=== PATIENT | male | born 1995 | race African-American/Black ===

== ENCOUNTER 2025-04-25 20:16 | Emergency (ER) | payer SELFPAY ==
--- NOTE | ~2025-04-25 | US_ITS ---
CLINICAL HISTORY: INJURY US scrotum with Doppler Comparison: None Findings: Right testicle is normal in size and echogenicity measuring 4.8 x 2.7 x 3 cm. There is normal color flow and arterial/venous spectral tracing in the right testicle. The right epididymis is hypervascular. There is no right hydrocele or varicocele. Left testicle is normal in size and echogenicity measuring 4.5 x 2.1 x 2.5 cm. There is increased vascularity of the left testicle relative to the right on color Doppler imaging. The left epididymis appears normal. There is no left hydrocele or varicocele. IMPRESSION: Increased vascularity of the right epididymis and left testicle suggestive of a traumatic versus infectious/inflammatory epididymitis and orchitis. This document has been electronically signed by: Rashaun Levy MD on 04/25/2025 22:25:31
[2025-04-25 20:20] VITALS: BP 140/80; PULSE 70; O2SAT 100; BMI 24.0
[2025-04-25 20:29] VITALS: BP 161/80; PULSE 66; RESP 16; TEMP 36.6; O2SAT 100
--- NOTE | 2025-04-25 20:43 | PC.NURSE ---
pt jennifer, after teticular injury during a lacrosse game. He was struck directly in the testicles, unable to ambulate upon EMS arrival. Pt reports 10/10 pain, family at bedside.
--- NOTE | 2025-04-25 20:55 | PC.NURSE ---
pt able to void 200 mL.
--- NOTE | 2025-04-25 21:00 | ED_ITS ---
HPI - Male Genitourinary General Chief complaint: Urogenital-Male Stated complaint: hit in testicle , vomitting Time Seen by Provider: 04/25/25 20:55 Source: patient Limitations: no limitations History of Present Illness ED Provider: Demi Garcia PA-C HPI Narrative: 29-year-old male presents with acute onset testicular pain. Patient states he was playing lacrosse, collided with another player, he was struck in the testicles. Patient having severe testicular pain, active nausea vomiting. Denies testicular swelling no bleeding. Related Data Previous Rx's ?Medication ?Instructions ?Recorded ketorolac 10 mg tablet 10 mg PO QID #20 tabs ondansetron HCl 4 mg tablet 4 mg PO Q8H PRN nausea and 04/25/25 vomiting #10 tabs oxycodone 5 mg tablet 5 mg PO Q6H PRN pain #12 tab s 04/25/25 Allergies Allergy/AdvReac Type Severity Reaction Status Date / Time No Known Allergies Allergy Verified 04/25/25 20:28 Review of Systems 2 Review of Systems: Yes all other systems are reviewed and are negative Constitutional: Constitutional: Denies fatigue and Denies fever(s) Cardiovascular: Cardiovascular: Denies chest pain and Denies dyspnea Respiratory: Respiratory: Denies dyspnea Gastrointestinal: Gastrointestinal: Denies abdominal pain, Reports nausea and Reports vomiting Genitourinary: Genitourinary: Denies scrotal swelling and Reports testicular pain Endocrine: Endocrine: Denies fatigue [facility] Past Medical History Attestation statement: The following information was validated with the patient. Social History Social History Advance Directives: No Advance Directives Information Provided: No Physical Exam 2 Vital Signs: Vital Signs: Last Vital Signs Temp 98.6 F 04/26/25 00:17 Pulse 61 04/26/25 00:17 Resp 16 04/26/25 00:17 BP 115/65 04/26/25 00:17 Pulse Ox 98 04/26/25 00:17 O2 Del Method Room Air 04/26/25 00:17 BMI result Body Mass Index 24.0 Const: Other: Alert, shaking, actively vomiting ill-appearing Orientation/consciousness: patient oriented x3 Resp: Effort & Inspection: normal respiratory effort Cardio: Other: Normal peripheral perfusion : Other: Defer Skin: Other: Warm dry no rash Neuro: General: patient oriented x3, gait normal, no focal motor deficits and CN's II-XI intact bilaterally Psych: Other: Cooperative Course Consultations Consultation #1: per Dr. Abraham.....f/u in 1 week, conservative measures....... The family states they are from [place], he was just here to play the lacrosse game he can follow up as an outpatient when he returns home Time: 22:51 Medications Administered Discontinued Medications Generic Name Dose Route Start Last Admin Trade Name Desmond PRN Reason Stop Dose Admin Sodium Chloride 1,000 mls @ 999 mls/hr 04/25/25 21:00 04/25/25 23:34 Ns IV 04/25/25 22:00 Infused .Q1H1M ARNOL Infusion Ketorolac Tromethamine 15 mg 04/25/25 23:37 04/25/25 23:42 Ketorolac Tromethamine 15 Mg/Ml Vial IVPUSH 04/25/25 23:38 15 mg ONCE ONE Administration Midazolam HCl 2 mg 04/25/25 21:28 04/25/25 21:33 Midazolam Hcl 2 Mg/2 Ml Vial IVPUSH 04/25/25 21:29 2 mg ONCE ONE Administration Morphine Sulfate 4 mg 04/25/25 20:56 04/25/25 21:13 Morphine Sulfate 4 Mg/Ml Cartridge IVPUSH 04/25/25 20:57 4 mg ONCE ONE Administration Protocol Medical Decision Making Medical Decision Making [facility] Narrative: 29-year-old male presents with acute onset testicular pain. Patient states he was playing lacrosse, collided with another player, he was struck in the testicles. Patient having severe testicular pain, active nausea vomiting. Denies testicular swelling no bleeding. No chronic issues History: Per patient I have considered the following differential diagnoses: Testicular rupture, torsion, contusion, laceration Plan: We will screen basic labs in the event that the patient sustained an acute injury and requires urology emergently. Placing an order for scrotal ultrasound. Medicating with Versed and morphine giving IV fluid I have independently reviewed the following tests: Labs: No leukocytosis, not anemic, no electrolyte abnormality Scrotal ultrasound:Findings: Right testicle is normal in size and echogenicity measuring 4.8 x 2.7 x 3 cm. There is normal color flow and arterial/venous spectral tracing in the right testicle. The right epididymis is hypervascular. There is no right hydrocele or varicocele. Left testicle is normal in size and echogenicity measuring 4.5 x 2.1 x 2.5 cm. There is increased vascularity of the left testicle relative to the right on color Doppler imaging. The left epididymis appears normal. There is no left hydrocele or varicocele. IMPRESSION: Increased vascularity of the right epididymis and left testicle suggestive of a traumatic versus infectious/inflammatory epididymitis and orchitis. Lab Data 04/25/25 21:24 04/25/25 21:24 Labs: Lab Results 04/25/25 Range/Units 21:24 WBC 8.7 (4.8-10.8) X10*3/uL RBC 4.02 L (4.60-5.80) X10*6/uL Hgb 13.3 L (14.0-18.0) g/dl Hct 36.5 L (42.0-52.0) % MCV 90.8 (80.0-98.0) fL MCH 33.1 H (27.0-33.0) pg MCHC 36.4 H (31.0-36.0) g/dl RDW 12.1 (11.0-16.0) % Plt Count 224 (160-400) X10*3/uL MPV 9.0 L (9.4-12.4) fL Immature Gran % (Auto) 0.2 (0.0-0.4) % Neut % (Auto) 74.5 H (45-73) % Lymph % (Auto) 16.7 L (20-40) % [place] % (Auto) 8.0 (2-11) % Eos % (Auto) 0.3 (0-4) % Baso % (Auto) 0.3 (0-2) % Lymph # (Auto) 1.5 (1.2-4.9) X10*3/uL [place] # (Auto) 0.7 (0.1-1.2) X10*3/uL Eos # (Auto) 0.0 (0.0-0.4) X10*3/uL Baso # (Auto) 0.0 (0.0-0.2) X10*3/uL Abs Immat Gran (auto) 0.02 (0.00-0.03) X10*3/uL Absolute Neuts (auto) 6.5 (2.0-8.3) x10*3/uL Absolute Nucleated RBC 0.000 (0.0-0.012) X10*3/uL Nucleated RBC % (auto) 0.0 (0.0-0.2) /100WBC Sodium 140 (135-145) mmol/L Potassium 3.6 (3.3-5.1) mmol/L Chloride 109 H (96-108) mmol/L Carbon Dioxide 23 (22-29) mmol/L Anion Gap 12 (12-20) BUN 12 (9-16) mg/dL Creatinine 0.92 (0.5-1.4) mg/dL Estim Creat Clear Calc 122.3 Estimated GFR > 60 Random Glucose 100 (60-115) mg/dL Calcium 8.8 (8.4-10.2) mg/dL Magnesium 1.9 (1.6-2.6) mg/dL Total Bilirubin 0.5 (0.0-1.0) mg/dL AST 38 H (5-37) U/L ALT 27 (0-40) U/L Alkaline Phosphatase 62 (39-117) U/L Total Protein 6.7 (6.5-8.0) g/dL Albumin 4.5 (3.5-5.0) g/dL Discharge Plan Discharge Clinical Impression: Pain in testicle due to trauma Patient Disposition: Home, Self-Care Instructions: Epididymitis (ED), Orchitis (ED) Additional Instructions: The ultrasound revealed that you have developed reactive/inflammatory epididymitis and orchitis secondary to the scrotal trauma you sustained. You should purchase a jockstrap, pack it with ice, and rest in bed for the next 2 days. Use the ketorolac as directed, this is an anti-inflammatory take it with food. Uses Zofran as needed if you develop further nausea. Use the oxycodone as needed for further pain. To note the oxycodone can be constipating, use Colace, which is a stool softener, to prevent constipation. You should follow up with your primary care for Urology consult when you return home. Prescriptions: New ketorolac 10 mg tablet 10 mg PO QID Qty: 20 0RF Rx Instructions: maximum total duration of 5 days from all oral, intranasal, or parenteral formulations. The patient received an IV dose of Toradol here in the emergency room. ondansetron HCl 4 mg tablet 4 mg PO Q8H PRN (Reason: nausea and vomiting) Qty: 10 0RF oxycodone 5 mg tablet 5 mg PO Q6H PRN (Reason: pain) Qty: 12 0RF Rx Instructions: Partial Fill upon patient request. Stand Alone Forms: Work/School Release Interventions: ED Discharge Assessment Last Done: 04/26/25 00:17 Print Language: Tristanian
[2025-04-25 21:28] LABS: Hematocrit 36.5 % (42.0-52.0); Hemoglobin 13.3 g/dl (14.0-18.0); Imm Gran Abs Auto 0.02 X10*3/uL (0.00-0.03); Imm Gran Pct Auto 0.2 % (0.0-0.4); Lymphocytes Absolute Auto 1.5 X10*3/uL (1.2-4.9); MANUAL DIFF FLAG NO; Mean Corpuscular HGB Conc 36.4 g/dl (31.0-36.0); Mean Corpuscular Hemoglobin 33.1 pg (27.0-33.0); Mean Corpuscular Volume 90.8 fL (80.0-98.0); NRBC Abs Auto 0.000 X10*3/uL (0.0-0.012); NRBC Pct Auto 0.0 /100WBC (0.0-0.2); Platelet Count 224 X10*3/uL (160-400); Red Blood Count 4.02 X10*6/uL (4.60-5.80); White Blood Count 8.7 X10*3/uL (4.8-10.8)
[2025-04-25 21:43] LABS: Alanine Aminotransferase 27 U/L (0-40); Albumin Level 4.5 g/dL (3.5-5.0); Alkaline Phosphatase 62 U/L (39-117); Anion Gap 12 (12-20); Aspartate Amino Transferase 38 U/L (5-37); Blood Urea Nitrogen 12 mg/dL (9-16); Calcium 8.8 mg/dL (8.4-10.2); Carbon Dioxide 23 mmol/L (22-29); Chloride 109 mmol/L (96-108); Creatinine Clr Calc Pharmacy 122.3; Estimated Glomerular Filt Rate > 60; Magnesium 1.9 mg/dL (1.6-2.6); Potassium 3.6 mmol/L (3.3-5.1); Sodium 140 mmol/L (135-145); Total Protein 6.7 g/dL (6.5-8.0)
--- NOTE | 2025-04-25 21:52 | PC.NURSE ---
pt medicated per MAR, family member at bedside.
[2025-04-25 22:16] VITALS: BP 118/64; PULSE 65; RESP 19; TEMP 36.6; O2SAT 97
--- OUTSIDE RECORDS SUMMARY | 2025-04-25 22:28 | XMS_ITS | Clinical Summary ---
Author Organization [facility] Address [address] [place] [address] Phone Care Team Providers Care Resin Filterer Name Role Phone Physician, No Pcp Primary Care Provider Unavaila ble Allergies No known active allergies Medications No known medications Social History Tobacco Use Types Packs/Day Years Used Date Smoking Tobacco: Never Assessed Sex and Gender Information Value Date Recorded Sex Assigned at Not on file Legal Sex Male 2:28 PM EDT Gender Identity Not on file Sexual Orientation Not on file Obstetrics History Last Filed Vital Signs Vital Sign Reading Time Taken Comments Blood Pressure 132/79 12/10/2022 6:37 PM EST Pulse 84 12/10/2022 6:37 PM EST Temperature 36.9 C (98.5 F) 12/10/2022 6:37 PM EST Respiratory Rate 18 12/10/2022 6:37 PM EST Oxygen Saturation - - Inhaled Oxygen Concentration - - Weight 78.5 kg (173 lb) 12/10/2022 6:37 PM EST Height 180.3 cm (5' 11 ) 12/10/2022 6:37 PM EST Body Mass Index 24.13 12/10/2022 6:37 PM EST Plan of Treatment Health Maintenance Due Date Last Done Comments DTaP,Tdap,and Td Vaccines (7 - Td or Tdap) 05/04/2016 05/04/2006, 02/24/2000, 12/22/1996, Additional history exists Depression Screening 12/10/2022 HIV Screening 12/10/2022 Hepatitis C Screening 12/10/2022 Social Influencers of Health Screening 12/10/2022 COVID-19 Vaccine ( season) 2024 Influenza Vaccine (#1) 2025 4, 06/28/2012, 08/14/2011, Additional history exists Hepatitis B Vaccines Completed 06/10/1996, 1995, 1995 HIB Vaccines Completed 12/22/1996, 02/14, 01/10/1996, Additional history exists IPV Vaccines Completed 02/24/2000, 02/14, 01/10/1996, Additional history exists MMR Vaccines Completed 02/24/2000, 12/22/1996 Hepatitis A Vaccines Completed 05/13/2007, 05/04/20 06 Varicella Vaccines Completed 05/14/2008, 06/04/2001 Meningococcal ACWY Vaccine Completed 06/28/2012, HPV Vaccines Completed 03/06/2013, 06/15, 06/21/2011 Meningococcal B Vaccine Aged Out No l onger eligible based on patient's age to complete this topic Pneumococcal Vaccine: Pediatrics (0 to 5 Years) and At-Risk Patients (6 to 49 Years) Aged Out No longer eligible based on patient's age to complete this topic RSV Immunization Patients Under 20 months Aged Out No longer eligible based on patient's age to complete this topic Insurance [employer] Care Teams Resin Filterer Relationship Specialty Start Date End Date Physician, No Pcp PCP - General 12/10/22
[2025-04-26 00:17] VITALS: BP 115/65; PULSE 61; RESP 16; TEMP 37; O2SAT 98
== END 2025-04-26 00:33 | disposition home or self-care (01) ==
PROVIDERS: Physician Assistant Medical; Emergency Provider Emergency Medicine
DX: N50.812 Left testicular pain (principal); N50.811 Right testicular pain; R11.2 Nausea with vomiting, unspecified
CPT/HCPCS: 36415; 76870; 80053; 83735; 85025; 93975; 96361; 96374; 96375; 99284; 99285; J1885; J2250; J2270

== ENCOUNTER → 2025-04-25 20:35 | Outpatient (BNV) | payer SELFPAY | PROVIDERS: Emergency Provider Emergency Medicine; Visit Provider Radiology Diagnostic Radiology | DX: N50.82 Scrotal pain (principal) | CPT/HCPCS: 93975 ==